=== PATIENT | male | born 1990 | race Caucasian/White ===

== ENCOUNTER 2024-04-16 19:33 | Emergency (ER) | payer OTHER ==
--- NOTE | 2024-04-16 19:58 | ED ---
Lower Extremity Injury HPI - General Source: patient, RN notes reviewed <Eva Burr - Last Filed: 04/16/24 19:56> - General Source: patient, RN notes reviewed, old records reviewed <Can Simeon - Last Filed: 04/16/24 22:57> - General Stated Complaint: Leg Pain,Numbness Time Seen by Provider: 04/16/24 19:50 - History of Present Illness Initial Comments: Quick [id number] male presents the emergency department chief complaint of right knee pain. Patient's over the past few weeks he has been experiencing right knee pain and this afternoon he stretched his right knee and felt a pulling sensation of his knee. Patient denies falls. Patient had outpatient MRI scheduled and follow-up with orthopedic surgeon for right knee pain however has not made either appointment. (Eva Burr) Patient presents as a quick note originally. Presents from [place] complaining of right knee pain. States that he was attempting to crack his toe and bent his knee a weird way when he felt the pain in his knee that radiated down towards his foot. The pain radiation is gone however patient is still having some discomfort inside of his knee. Does believe he has a torn meniscus there. Unknown if anything else might be going on. Followed up with orthopedics or gotten an MRI of his knee. Presents for further evaluation at this time. I evaluated the patient when he is placed in a room. (Can Simeon) - Related Data Allergies Allergy/AdvReac Type Severity Reaction Status Date / Time codeine AdvReac Anaphylaxis Verified 04/16/24 20:01 tramadol AdvReac Nausea & Verified 04/16/24 20:01 Vomiting Review of Systems ROS Other: All systems not noted in ROS Statement are negative. <Eva Burr - Last Filed: 04/16/24 19:56> ROS Other: All systems not noted in ROS Statement are negative. <Can Simeon - Last Filed: 04/16/24 22:57> ROS Statement: Those systems with pertinent positive or pertinent negative responses have been documented in the HPI. Review of Systems: CONST: Denies fever EYES: Denies blurry vision ENT: Denies nasal congestion C/V: Denies Chest pain RESP: Denies shortness of breath GI: Denies abdominal pain : Denies dysuria SKIN: Denies rash. MSK: Endorses right knee pain NEURO: Denies headache (Can Simeon) General Exam <Eva Burr - Last Filed: 04/16/24 19:56> <Can Simeon - Last Filed: 04/16/24 22:57> - General Exam Comments Initial Comments: Visual Physical Exam Vital signs reviewed General: Well-appearing, nontoxic, no acute distress. Head: Normocephalic, atraumatic Eyes: PERRLA, EOMI ENT: Airway patent Chest: Nonlabored breathing Skin: No visual rash, normal skin tone Neuro: Alert and oriented 3 Musculoskeletal: No gross abnormalities (Eva Burr) General: Appears in no acute distress. HEAD: Normal with no signs of head trauma. EYES: EOMI. ENT: Hearing grossly intact. RESPIRATORY: No respiratory distress. C/V: Regular rate and rhythm. ABD: Abdomen is nondistended. EXT: No obvious deformity. Tenderness to palpation over the anterior aspect of the knee. Able to hold in full extension. Normal range of motion of the knee. No valgus or varus stress deformities or pain. Negative anterior and posterior drawer test. Neurovascular intact throughout the right lower extremity. SKIN: No rashes or lesions observed on exposed skin. NEURO: Alert and oriented. (Can Simeon) Course Vital Signs 04/16/24 04/16/24 19:56 22:34 Temperature 98.2 F 98.1 F Pulse Rate 75 83 Respiratory 18 18 Rate Blood Pressure 147/91 136/87 O2 Sat by Pulse 99 99 Oximetry Medical Decision Making <Eva Burr - Last Filed: 04/16/24 19:56> <Can Simeon - Last Filed: 04/16/24 22:57> - Medical Decision Making I completed the quick note portion of this chart signed Eva Burr PA-C (Eva Burr) Was pt. sent in by a medical professional or institution ([facility], [facility] [employer], urgent care, hospital, or long term...) When possible be specific @ -[facility]. Did you speak to anyone other than the patient for history (EMS, parent, family, police, friend...)? What history was obtained from this source @ -No Did you review nursing and triage notes (agree or disagree)? Why? @ -I reviewed and agree with nursing and triage notes Were old charts reviewed (outside hosp., previous admission, EMS record, old EKG, old radiological studies, urgent care reports/EKG's, long term records)? Report findings @ -No old charts were reviewed Differential Diagnosis (chest pain, altered mental status, abdominal pain women, abdominal pain men, vaginal bleeding, weakness, fever, dyspnea, syncope, headache, dizziness, GI bleed, back pain, seizure, CVA, palpatations, mental health, musculoskeletal)? @ -Differential Musculoskeletal Muscular strain, contusion, ligament sprain, fracture, arthritis, septic arthritis, bursitis, cellulitis, muscle spasm, nerve compression, DVT, arterial occlusion, herpes zoster, electrolyte abnormality, tumor.... This is not meant to be in all inclusive list EKG interpreted by me (3pts min.). @ -None done X-rays interpreted by me (1pt min.). @ -Right knee x-ray reveals mild arthritis. No other obvious findings. CT interpreted by me (1pt min.). @ -None done U/S interpreted by me (1pt. min.). @ -None done What testing was considered but not performed or refused? (CT, X-rays, U/S, labs)? Why? @ -None What meds were considered but not given or refused? Why? @ -None Did you discuss the management of the patient with other professionals (professionals i.e. , PA, [employer], lab, RT, psych nurse, social media director, rn radiation, teacher, customer service officer, lead case manager)? Give summary @ -No Was smoking cessation discussed for >3mins.? @ -No Was critical care preformed (if so, how long)? @ -No Were there social determinants of health that impacted care today? How? (Homelessness, low income, unemployed, alcoholism, drug addiction, transportation, low edu. Level, literacy, decrease access to med. care, fci, rehab)? @ -No Was there de-escalation of care discussed even if they declined (Discuss DNR or withdrawal of care, Hospice)? DNR status @ -No What co-morbidities impacted this encounter? (DM, HTN, Smoking, COPD, CAD, Cancer, CVA, ARF, Chemo, Hep., AIDS, mental health diagnosis, sleep apnea, morbid obesity)? @ -None Was patient admitted / discharged? Hospital course, mention meds given and route, prescriptions, significant lab abnormalities, going to OR and other pertinent info. @ -Patient presents for right knee pain. X-ray obtained and was negative for any obvious findings other than mild arthritis. Discussed results with the patient. Does have chronic right knee pain. Vitals are within acceptable limits. He will be discharged home with an Jasson bandage. Can use OTC Tylenol and Motrin for it. Recommended follow-up with an orthopedic surgeon and he will be given contact information for 1. May need MRI if pain persist. He was in agreement with this plan. I offered analgesia medications which were declined. I instructed the patient to follow up with their PCP in the next 1-3 days. I explained that the patient should return to the emergency department if they experience any worsening symptoms. Strict return precautions were discussed with the patient. The patient expressed understanding of these instructions. I answered all questions that the patient had. The patient was discharged home in good condition with their prescriptions and follow up information. Undiagnosed new problem with uncertain prognosis? @ -No Drug Therapy requiring intensive monitoring for toxicity (Heparin, Nitro, Insul in, Cardizem)? @ -No Were any procedures done? @ -No Diagnosis/symptom? @ -Right knee sprain Acute, or Chronic, or Acute on Chronic? @ -Acute on chronic Uncomplicated (without systemic symptoms) or Complicated (systemic symptoms)? @ -Uncomplicated Side effects of treatment? @ -No Exacerbation, Progression, or Severe Exacerbation? @ -No Poses a threat to life or bodily function? How? (Chest pain, [place], [place], pneumonia, PE, COPD, DKA, ARF, appy, cholecystitis, CVA, Diverticulitis, Homicidal, Suicidal, threat to staff... and all critical care pts) @ -No (Can Simeon) Disposition <Eva Burr - Last Filed: 04/16/24 19:56> Is patient prescribed a controlled substance at d/c from ED?: No Time of Disposition: 22:11 <Can Simeon - Last Filed: 04/16/24 22:57> Clinical Impression: Knee sprain Disposition: HOME SELF-CARE Condition: Good Instructions (If sedation given, give patient instructions): Knee Sprain (ED) Additional Instructions: follow up with orthopedics if pain persists. may need further imaging such as MRI for further testing. Referrals: None,Stated [Primary Care Provider] - 1-2 days Lazaro Allen DO [Doctor of Osteopathic Medicine] - 1-2 days Forms: Area PCPs
[2024-04-16 20:01] VITALS: RESP 18
--- NOTE | 2024-04-16 20:41 | XR ---
EXAMINATION TYPE: XR knee complete RT DATE OF EXAM: 04/16/2024 8:14 PM CLINICAL INDICATION: Male, 33 years old with history of pain; COMPARISON: None. TECHNIQUE: XR knee complete RT; examined in Frontal, lateral and oblique projections. FINDINGS: No evidence of any acute osseous pathology, soft tissue swelling, or joint effusion is no sarah. Tricompartmental osteophyte formation involving the femoral condyles, tibial plateau and patella . Mild joint space narrowing. IMPRESSION: 1. No acute osseous pathology. 2. Mild tricompartmental osteoarthritic changes.
[2024-04-16 22:36] VITALS: BP 136/87; PULSE 83; TEMP 98.1
== END 2024-04-16 22:43 | disposition home or self-care (01) ==
LOC: EC 19:33
DX: S83.91XA Sprain of unspecified site of right knee, initial encounter (principal); Z88.5 Allergy status to narcotic agent
CPT/HCPCS: 99284